=== PATIENT | male | born 1960 | race Hispanic/Latino ===

== ENCOUNTER → 2021-04-01 | Day surgery (SDC) | payer BC ==
[~2021-04-01] MED LIST: GLIPIZIDE-METF1 EAC2 PO; LIDOCAINE 1% W/EPINEPHRINE 20 ML VIAL ONE; METFORMIN HCL500 MG PO; OXYMETAZOLINE HCL 0.05% NAS 1 SPRAY BTL ONE; PRAVASTATIN SOD20 MG PO; ZESTRIL10 MG PO
[2021-04-01 10:41] LABS: ANION GAP 11.3 mmol/L (8-16); CALCIUM 10.8 mg/dL (8.4-10.2); CREATININE, SERUM 0.76 mg/dL (0.72-1.25); POTASSIUM 4.3 mmol/L (3.5-5.1)
[2021-04-01 13:10] VITALS: BP 120/79
== END | disposition home or self-care (01) ==
LOC: OR 09:16
PROVIDERS: ATTEND Otolaryngology Otolaryngology/Facial Plastic Surgery
DX: K13.29 Other disturbances of oral epithelium, including tongue (principal); R49.0 Dysphonia; E11.9 Type 2 diabetes mellitus without complications; I10 Essential (primary) hypertension; K21.9 Gastro-esophageal reflux disease without esophagitis; Z20.822 Contact with and (suspected) exposure to COVID-19; Z79.84 Long term (current) use of oral hypoglycemic drugs; Z85.21 Personal history of malignant neoplasm of larynx; Z92.3 Personal history of irradiation; Z85.118 Personal history of other malignant neoplasm of bronchus and lung; Z87.891 Personal history of nicotine dependence
CPT/HCPCS: 31536; 31622; 36415; 43191; 80048; 82948; 88305; 93005; U0002